=== PATIENT | female | born 1955 | race Caucasian/White ===

== ENCOUNTER → 2019-03-20 | Day surgery (SDC) | payer OTHER ==
[~2019-03-20] MED LIST: BUPIVACAINE (PF) 0.25% 30 ML VIAL INTRAARTIC ONE; DEXAMETHASONE SOD PHOSPHATE 10 MG/ML 1 ML VIAL IV ONE; GLYCOPYRROLATE 0.2 MG/ML 2 ML VIAL ONE; HYDROmorphone 0.5 MG/0.5 ML SYRINGE IVP PRN; LACTATED RINGERS 1,000 ML IV ONE; LACTATED RINGERS 1,000 ML IV SCH; LIDOCAINE 1% 20 ML VIAL (10MG/ML) FOR IV START INTRADERMA PRN; LIDOCAINE 1% INJ 10MG/ML (20 ML MDV) ONE; MIDAZOLAM 2 MG/2 ML VIAL IVP ONE; MIDAZOLAM 2 MG/2 ML VIAL ONE; ONDANSETRON 4 MG/2 ML VIAL IVP ONE; PHENYLEPHRINE-0.9% NACL SYG 1 MG/10 ML SYRINGE ONE; PROPOFOL 10 MG/ML 20 ML VIAL IV ONE; Pre Op ABX Message 1 EACH MISC MISCELLANE ONE; ROPIVACAINE 5 MG/ML 30 ML VIAL ONE; SCOPOLAMINE 1.5MG/72HR PATCH TRANSDERM ONE; SODIUM CHLORIDE 0.9% 50 ML with ceFAZolin 2,000 MG IV ONE; SUCCINYLCHOLINE CHLORIDE 100 MG/5 ML SYR IV ONE; ePHEDrine SULFATE/0.9% NACL/PF 50 MG/5 ML SYRINGE IV ONE; fentaNYL (PF) 50 MCG/ML 2 ML AMP ONE
[2019-03-20 13:22] VITALS: TEMP 97.9
--- NOTE | 2019-03-20 15:21 | P.ANPRN ---
Procedure Note - Anesthesia - Nerve Block Performed Left Interscalene Date of Procedure: 03/20/19 Procedure Start Time: 14:57 Procedure Stop Time: 15:12 Location of Patient Procedure: PreOp Indication: Acute Post-Operative Pain, Requested by Surgeon (Dr Gonzalez) Sedation Type: Sedate with meaningful contact maintained Preparation: Sterile Prep Position: Supine Catheter: None Needle Types: Pajunk Needle Gauge: Other (see comment) (22g) Ultrasound used to visualize needle placement: Yes Ultrasound used to observe medication spread: Yes Injectate: 0.5% Ropivacaine (see comment for volume) (20cc) Blood Aspirated: No Pain Paresthesia on Injection Noted: No Resistance on Injection: Normal Image Stored and Saved: Yes Events: Uneventful and Well Tolerated
[2019-03-20 16:45] VITALS: RESP 16
[2019-03-20 18:18] VITALS: BP 126/78; PULSE 73
--- NOTE | 2019-03-21 08:46 | OP ---
OPERATIVE REPORT DATE OF PROCEDURE: 03/20/2019 SURGEON: Pipe Gonzalez MD [employer] ASSOCIATE: Fercho JOSE. PREOPERATIVE DIAGNOSES: 1. Left shoulder full-thickness rotator cuff tear. 2. Left shoulder superior labral tear. 3. Left shoulder bicipital tenosynovitis. POSTOPERATIVE DIAGNOSES: 1. Left shoulder full-thickness tear of the supraspinatus and anterior infraspinatus, 2 cm x 3 cm of retraction. 2. Left shoulder type 2 degenerative superior labral tear. 3. Left shoulder high-grade partial tearing of the intra-articular portion of long head of the biceps tendon. 4. Left shoulder type 2 anterolateral acromial spur. PROCEDURE PERFORMED: 1. Left shoulder arthroscopic rotator cuff repair. A 2 cm x 3 cm tear of the supraspinatus and anterior infraspinatus. 2. Left shoulder arthroscopic acromioplasty. 3. Left shoulder arthroscopic biceps tenotomy. 4. Left shoulder arthroscopic anterior, superior, and posterior labral debridement. ANESTHESIA: General endotracheal. ESTIMATED BLOOD LOSS: Minimal. TOURNIQUET: None. DRAINS: None. COMPLICATIONS: None apparent. DISPOSITION: Postanesthesia care unit. EXAMINATION UNDER ANESTHESIA: Left shoulder elevation 160 degrees, external rotation at the side 45 degrees, external rotation 90 degrees, internal rotation at 90 degrees, abduction was 60 degrees, sulcus less than 1 cm, anterior translation glenoid face, posterior translation glenoid face. ARTHROSCOPIC FINDINGS LEFT SHOULDER: 1. Superior labrum degenerative type 2 superior labral tear tearing both anterior portion of the biceps anchor. The biceps anchor was not intact. There was also fairly high-grade partial tearing of the intra-articular portion of long head of the biceps tendon. 2. Anterior, inferior labrum normal glenoid labral attachment. 3. Posterior labral tearing of the posterior labrum from the 10 o'clock position up to the 12 o'clock position on the glenoid face. 4. Humeral head cartilage normal. 5. Rotator cuff large full-thickness tear of the supraspinatus in the anterior infraspinatus 3 cm x 2 cm tear with retraction to the medial aspect of the humeral head, glenoid face cartilage was normal. 6. Subacromial space significant fraying of the undersurface of the coracoacromial ligament with type 2 anterolateral acromial spur. INDICATIONS: Molly is a very pleasant 63-year-old female with left shoulder pain. She has noted weakness as well as significant pain in the shoulder. She has been through a very significant course of nonoperative treatment up to this point. Physical examination and MRI reveal tearing of the superior labrum as well as a large rotator cuff tear. At this point in time, she feels as if she has failed nonoperative treatment and would like to proceed with operative intervention. Long discussion was held with the patient with regard to treatment option. The risks of procedure were all discussed with her in detail. These risks included, but were not limited to risk of infection, nerve damage, bleeding, pain, and a small risk of deep vein thrombosis which could lead to fatal pulmonary embolism. Further risks include lack of healing of rotator cuff and possibility for biceps contour change with a biceps tenotomy. The patient understands the operation as well as the fact that there was no guarantee of improvement of her symptoms. An appropriate informed consent was obtained. DESCRIPTION OF PROCEDURE: Patient identified in preoperative holding area. Surgical site was marked by both the patient and myself. She was given 2 g of Ancef IV for prophylactic purposes. She was then transported to the operative suite. She was placed supine on the operative table. The patient was then intubated endotracheally and received general anesthesia throughout the operative procedure. Examination under anesthesia was then performed with the findings noted above. Patient was then placed into the beach chair position, well-padded in preparation for surgery. Great care was taken to ensure the cervical spine is in neutral alignment, well-padded and maintained that way throughout the operative procedure. Great care was also taken to ensure that her legs were appropriately padded as well. Patient's left upper extremity is then prepped and draped in usual sterile fashion. Standard surgical pause undertaken to ensure that appropriate preop antibiotics were given and that we were operating on the correct site. All staff in the room are in agreement, we proceeded. The acromion as well as AC joint coracoid marked with surgical pen. Skin of the anticipated port sites were also marked with surgical pen. The skin of the anticipated portal sites were then injected with 0.25% Marcaine with epinephrine. I then proceed to make a posterior portal. A 30 degree arthroscope was introduced to the glenohumeral joint through this portal. The arthroscopic pump pressure was set at 40 mmHg and maintained at that level throughout the entire case. Next, utilizing an 18-gauge spinal needle to topically localize the placement, the anterior superior portal was made. This was made just underneath the biceps tendon, high on the rotator interval. A small 5.75 mm cannula was then placed. The outflow was then done through this cannula. Diagnostic arthroscopy of the shoulder was then performed. The findings are as noted above. Great care was taken to probe superior labral complex as well as the biceps anchor. The biceps anchor was not firmly attached. She had very significant high-grade partial tearing of the intra-articular portion of the long head of the biceps tendon. The tearing of the labrum did extend both anterior posterior to the biceps anchor. At this point, I proceeded with a biceps tenotomy. The biceps tenotomy lies near its attachment on the supraglenoid tubercle. This was done utilizing the ArthroCare wand. I then proceeded to debride the torn loose tissue of the superior labrum. This was debrided anteriorly, superiorly and posteriorly back to stable tissue. I then inspected the rotator cuff from intra-articular. She did have a full-thickness tear of the entire supraspinatus and the anterior aspect of the infraspinatus. At this point, no further work was deemed necessary from intra-articular. The arthroscope was removed from the glenohumeral joint and utilizing the same posterior skin incision was placed in the subacromial space. Next, utilizing an 18-gauge spinal needle to topically localize placement, a lateral port was made under direct visualization. Subacromial bursectomy was then performed utilizing synovial shaver as well as ArthroCare wand. There was significant fraying of the undersurface of the coracoacromial ligament. This was then taken down utilizing the ArthroCare wand. This exposed underlying type 2 anterolateral acromial spur. I then proceeded with an acromioplasty. Utilizing the arthroscopic bur, the acromioplasty was completed. When the acromioplasty was complete, the arthroscope was placed in the lateral portal and the shaver placed posteriorly to ensure there was adequate and coplanar with posterior aspect of the acromion. I then proceeded to repair the rotator cuff tear. She had a very large full-thickness tear of the supraspinatus and the anterior aspect of the infraspinatus. This tear measured approximately 3 cm x 2 cm. The footprint of the greater tuberosity was then debrided of all devitalized tissue utilizing synovial shaver as well as the ArthroCare wand. I then performed a light decortication tear of the greater tuberosity utilizing synovial shaver in a aldo-type fashion. This provided a nice bleeding surface for the repair. I then placed small microfracture holes along the articular margin to again enhance healing of the repair. I then utilized an 18-gauge spinal needle to topically localize placement of an anterolateral portal. This was made just off the anterolateral angle of the acromion. The portal was then made under direct visualization. I then moved the arthroscope to the anterior lateral portal. The scorpion suture passer was utilized through the lateral portal, placed an Arthrex fiber tape suture in an inverted horizontal mattress fashion in the posterior half of the tear. The sutures were shuttled out through the posterior portal. I then again utilized scorpion suture passer and placed an Arthrex fiber tape suture in inverted horizontal mattress fashion in the anterior half of the tear. The sutures were shuttled out through the anterior portal. I then proceeded with placement of the first anchor. I placed the awl in the most posterolateral aspect of the footprint. The posterior FiberTape sutures were then shuttled through an Arthrex 4.75 mm BioComposite SwiveLock anchor. The sutures were shuttled through the anchor and the anchor placed after tensioning the sutures appropriately. The anchor had an excellent purchase in bone. This brought the rotator cuff tear down very nicely in the most posterolateral aspect of the footprint. I then moved the arthroscope back to the lateral portal. The anterior sutures were brought out through the anterolateral portal. The awl was placed in the most anterolateral aspect of the footprint. This was just posterior to the bicipital groove. Again, an Arthrex 4.75 mm biocomposite SwiveLock anchor was chosen. The FiberTape sutures were shuttled through the anchor and the anchor was placed after tensioning the sutures appropriately. The anchor had excellent purchase and bone. This brought the anterior half of the tear down very nice most anterolateral aspect of the footprint. The FiberTape sutures were cut flush with the anchor. The repair was then probed. It had been repaired down very securely and nicely at the most lateral aspect of the footprint. At this point time no further work was deemed necessary. The shoulder was thoroughly irrigated and drained with an outflow cannula. The arthroscopic equipment was removed from the shoulder. Fluoroscopic portals were then closed with 3-0 nylon interrupted suture. Sterile compressive dressing was then applied. The patient's left upper extremity was placed into a standard sling. All sponge and needle counts were deemed correct prior to closure. The patient tolerated procedure without apparent complication. She was transferred to the recovery room in stable condition. MMAPRIL / MEETN: [id number] /
== END | disposition home or self-care (01) ==
LOC: OR 12:33
PROVIDERS: ATTEND Orthopaedic Surgery Sports Medicine
DX: S46.012A Strain of muscle(s) and tendon(s) of the rotator cuff of left shoulder, initial encounter (principal); S43.432A Superior glenoid labrum lesion of left shoulder, initial encounter; S46.112A Strain of muscle, fascia and tendon of long head of biceps, left arm, initial encounter; M75.82 Other shoulder lesions, left shoulder; M50.322 Other cervical disc degeneration at C5-C6 level; E78.5 Hyperlipidemia, unspecified; F32.9 Major depressive disorder, single episode, unspecified; R45.0 Nervousness; R01.1 Cardiac murmur, unspecified; M26.89 Other dentofacial anomalies; Z79.899 Other long term (current) drug therapy; Z87.891 Personal history of nicotine dependence; Z79.891 Long term (current) use of opiate analgesic; Z98.890 Other specified postprocedural states; Z82.49 Family history of ischemic heart disease and other diseases of the circulatory system; Z79.1 Long term (current) use of non-steroidal anti-inflammatories (NSAID); W10.8XXA Fall (on) (from) other stairs and steps, initial encounter; W22.09XA Striking against other stationary object, initial encounter
CPT/HCPCS: 29827; 29826; 64415; 76942; C1713 ×2; J2250; J1100; J2405; J0690; J2001; J3010; J2795; J2370; J0330; J2704

== ENCOUNTER → 2022-05-11 | Outpatient (CLI) | payer MEDICARE ==
[2022-05-11 10:19] LABS: Basophils # (A) 0.03 X 10*3/uL (0.00-0.10); Basophils % (A) 0.9 %; Eosinophils # (A) 0.24 X 10*3/uL (0.04-0.35); Eosinophils % (A) 7.1 %; HCT 44.1 % (37.2-46.3); HGB 14.1 g/dL (12.0-15.0); Immature Grans, Automated 0.3 %; Lymphocytes # (A) 1.24 X 10*3/uL (0.90-5.00); Lymphocytes % (A) 36.9 %; MCH 29.6 pg (27.0-32.0); MCV 92.5 fL (80.0-97.0); Mean Platelet Volume 9.6 fL (9.5-12.2); Monocytes # (A) 0.34 X 10*3/uL (0.20-1.00); Monocytes % (A) 10.1 %; NRBC Per 100 WBC 0 /100 WBCS (0.0-0.0); Neutrophils % (A) 44.7 %; Platelet Count 223 X 10*3/uL (140-440); RBC 4.77 X 10*6/uL (4.10-5.20); RDW 11.9 % (11.5-14.5); WBC 3.36 X 10*3/uL (4.50-10.00)
[2022-05-11 10:56] LABS: ALT 20 U/L (8-44); AST 16 U/L (13-35); African American GFR (CKD) 85.6 (60.0-200.0); Albumin 4.2 g/dL (3.8-4.9); Albumin/Globulin Ratio 1.99 (1.60-3.17); Alkaline Phosphatase 95 U/L (41-126); BUN/Creat Ratio 22.63 Ratio (12.00-20.00); Blood Urea Nitrogen 18.6 mg/dL (9.0-27.0); Calcium 9.6 mg/dL (8.7-10.3); Carbon Dioxide 27.3 mmol/L (20.0-27.5); Chloride 107 mmol/L (96-109); Chol/HDL Ratio 3.98 Ratio; Globulin 2.1 g/dL (1.6-3.3); Glucose 88 mg/dL (70-110); LDL Cholesterol,Calculated 145.8 mg/dL (0.0-131.0); Non-African American GFR(CKD) 73.8 (60.0-200.0); Potassium 4.7 mmol/L (3.5-5.5); Sodium 143 mmol/L (135-145); Total Protein 6.3 g/dL (6.2-8.2); VLDL Calculation 17.36 mg/dL (5.00-40.00)
== END | disposition home or self-care (01) ==
LOC: LABWHC1 06:59
PROVIDERS: ATTEND Family Medicine
DX: E66.9 Obesity, unspecified (principal); Z68.31 Body mass index [BMI] 31.0-31.9, adult
CPT/HCPCS: 36415; 80053; 80061; 82306; 85025

== ENCOUNTER → 2022-05-18 | Outpatient (CLI) | payer MEDICARE ==
[2022-05-18 10:20] LABS: Basophils # (A) 0.05 X 10*3/uL (0.00-0.10); Basophils % (A) 1.4 %; Eosinophils % (A) 5.4 %; HCT 44.6 % (37.2-46.3); HGB 14.6 g/dL (12.0-15.0); Immature Grans, Automated 0.3 %; Lymphocytes # (A) 1.46 X 10*3/uL (0.90-5.00); Lymphocytes % (A) 39.7 %; MCH 30.4 pg (27.0-32.0); MCHC 32.7 g/dL (32.0-37.0); MCV 92.9 fL (80.0-97.0); Mean Platelet Volume 9.5 fL (9.5-12.2); Monocytes # (A) 0.35 X 10*3/uL (0.20-1.00); Monocytes % (A) 9.5 %; NRBC Per 100 WBC 0 /100 WBCS (0.0-0.0); Neutrophils # (A) 1.61 X 10*3/uL (1.80-7.70); Neutrophils % (A) 43.7 %; Platelet Count 242 X 10*3/uL (140-440); WBC 3.68 X 10*3/uL (4.50-10.00)
[2022-05-18 10:44] LABS: ALT 17 U/L (8-44); AST 13 U/L (13-35); African American GFR (CKD) 100.4 (60.0-200.0); Albumin 4.3 g/dL (3.8-4.9); Albumin/Globulin Ratio 2.03 (1.60-3.17); Alkaline Phosphatase 98 U/L (41-126); BUN/Creat Ratio 27.22 Ratio (12.00-20.00); Blood Urea Nitrogen 19.6 mg/dL (9.0-27.0); Calcium 9.7 mg/dL (8.7-10.3); Carbon Dioxide 28.1 mmol/L (20.0-27.5); Chloride 105 mmol/L (96-109); Chol/HDL Ratio 3.92 Ratio; Globulin 2.1 g/dL (1.6-3.3); Glucose 87 mg/dL (70-110); LDL Cholesterol,Calculated 158.5 mg/dL (0.0-131.0); Non-African American GFR(CKD) 86.7 (60.0-200.0); Potassium 4.9 mmol/L (3.5-5.5); Sodium 140 mmol/L (135-145); Total Protein 6.3 g/dL (6.2-8.2); VLDL Calculation 16.54 mg/dL (5.00-40.00)
== END | disposition home or self-care (01) ==
LOC: LABWHC1 07:01
PROVIDERS: ATTEND Family Medicine
DX: E66.9 Obesity, unspecified (principal); Z68.31 Body mass index [BMI] 31.0-31.9, adult
CPT/HCPCS: 36415; 80053; 80061; 82306; 85025

== ENCOUNTER → 2022-09-28 | Outpatient (CLI) | payer MEDICARE ==
[2022-09-28 15:46] LABS: Basophils # (A) 0.03 X 10*3/uL (0.00-0.10); Basophils % (A) 0.6 %; Eosinophils # (A) 0.07 X 10*3/uL (0.04-0.35); Eosinophils % (A) 1.3 %; HCT 44.4 % (37.2-46.3); HGB 14.8 g/dL (12.0-15.0); Immature Grans, Automated 0.4 %; Lymphocytes # (A) 1.05 X 10*3/uL (0.90-5.00); Lymphocytes % (A) 20.2 %; MCH 30.6 pg (27.0-32.0); MCHC 33.3 g/dL (32.0-37.0); MCV 91.9 fL (80.0-97.0); Mean Platelet Volume 9.6 fL (9.5-12.2); Monocytes % (A) 5.8 %; NRBC Per 100 WBC 0 /100 WBCS (0.0-0.0); Neutrophils # (A) 3.72 X 10*3/uL (1.80-7.70); Neutrophils % (A) 71.7 %; Platelet Count 232 X 10*3/uL (140-440); RBC 4.83 X 10*6/uL (4.10-5.20); WBC 5.19 X 10*3/uL (4.50-10.00)
== END | disposition home or self-care (01) ==
LOC: LABWHC1 10:02
PROVIDERS: ATTEND Family Medicine
DX: D72.819 Decreased white blood cell count, unspecified (principal)
CPT/HCPCS: 36415; 85025

== ENCOUNTER → 2022-10-11 | Outpatient (CLI) | payer MEDICARE ==
--- NOTE | 2022-10-12 08:58 | MM ---
Reason for Exam: Screening (asymptomatic). Last mammogram was performed 2 year(s) and 4 month(s) ago. Patient History: Menarche at age 11. Patient has no children. Postmenopausal. Risk Values: Ev 5 year model risk: 1.9%. NCI Lifetime model risk: 6.2%. Prior Study Comparison: 04/08/2015 Bilateral Screening Mammogram, [facility]. 05/27/2020 Bilateral Screening Mammogram, [facility]. Tissue Density: The breast tissue is almost entirely fat. Findings: Analyzed By CAD. There is no suspicious group of microcalcifications or new suspicious mass in either breast. Overall Assessment: Negative, BI-RAD 1 Management: Screening Mammogram of both breasts in [address] [facility] will attempt to contact patient to return for supplemental views and ultrasound if indicated. Patient should continue monthly self-breast exams. A clinical breast exam by your physician is recommended on an annual basis. This exam should not preclude additional follow-up of suspicious palpable abnormalities. Note on Ev scores and lifetime risk: 1. A Ev score greater than 3% is considered moderate risk. If this is the case, consider specialist referral to assess eligibility for a risk reducing agent. 2. If overall lifetime risk for the development of breast cancer is 20% or higher, the patient may qualify for future screening with alternating mammogram and breast MRI. Electronically signed and approved by: Krishna Guy DO
== END | disposition home or self-care (01) ==
LOC: RADMAMWWP 10:11
PROVIDERS: ATTEND Family Medicine
DX: Z12.31 Encounter for screening mammogram for malignant neoplasm of breast (principal); Z78.0 Asymptomatic menopausal state
CPT/HCPCS: 77067

== ENCOUNTER 2023-02-07 09:52 | Day surgery (SDC) | payer MEDICARE ==
[2023-02-03 15:45] VITALS: BMI 29.5
[~2023-02-07 09:52] MED LIST changes: -BUPIVACAINE (PF) 0.25% 30 ML VIAL INTRAARTIC ONE; -DEXAMETHASONE SOD PHOSPHATE 10 MG/ML 1 ML VIAL IV ONE; -GLYCOPYRROLATE 0.2 MG/ML 2 ML VIAL ONE; -HYDROmorphone 0.5 MG/0.5 ML SYRINGE IVP PRN; -LACTATED RINGERS 1,000 ML IV ONE; -LIDOCAINE 1% 20 ML VIAL (10MG/ML) FOR IV START INTRADERMA PRN; -LIDOCAINE 1% INJ 10MG/ML (20 ML MDV) ONE; -MIDAZOLAM 2 MG/2 ML VIAL IVP ONE; -MIDAZOLAM 2 MG/2 ML VIAL ONE; -ONDANSETRON 4 MG/2 ML VIAL IVP ONE; -PHENYLEPHRINE-0.9% NACL SYG 1 MG/10 ML SYRINGE ONE; -PROPOFOL 10 MG/ML 20 ML VIAL IV ONE; -Pre Op ABX Message 1 EACH MISC MISCELLANE ONE; -ROPIVACAINE 5 MG/ML 30 ML VIAL ONE; -SCOPOLAMINE 1.5MG/72HR PATCH TRANSDERM ONE; -SODIUM CHLORIDE 0.9% 50 ML with ceFAZolin 2,000 MG IV ONE; -SUCCINYLCHOLINE CHLORIDE 100 MG/5 ML SYR IV ONE; -ePHEDrine SULFATE/0.9% NACL/PF 50 MG/5 ML SYRINGE IV ONE; -fentaNYL (PF) 50 MCG/ML 2 ML AMP ONE
[2023-02-07 10:26] VITALS: TEMP 98.2
[2023-02-07] MEDS ORDERED: LIDOCAINE 2% INJ 20 MG/ML (2 ML VIAL) ONE (11:24)
[2023-02-07] MEDS ORDERED: PROPOFOL 10 MG/ML 20 ML VIAL IV ONE (11:24)
--- NOTE | 2023-02-07 11:39 | P.PCN ---
Date of Procedure: 02/07/23 Procedure(s) Performed: BRIEF HISTORY: Patient is a 67-year-old pleasant female scheduled for an elective colonoscopy as a part of screening for colon cancer and family history of colon cancer. Both parents were diagnosed with colon cancer in the 70s respectively. PROCEDURE PERFORMED: Colonoscopy. PREOPERATIVE DIAGNOSIS: Screening for colon cancer and family history of colon cancer. IV sedation per Anesthesia. PROCEDURE: After informed consent was obtained, the patient, was brought into the endoscopy unit. IV sedation was administered by Anesthesia under continuous monitoring. Digital rectal examination was normal. Initially the Olympus CF-160 flexible video colonoscope was then inserted in the rectum, gradually advanced into the cecum without any difficulty. Careful examination was performed as the scope was gradually being withdrawn. Ileocecal valve and the appendiceal orifice were visualized and appeared normal. Prep was excellent. Mucosa of the cecum, ascending colon, transverse colon, descending colon, sigmoid colon, and rectum appeared normal. Scattered sigmoid diverticulosis. Retroflexion was performed in the rectum and small internal hemorrhoids were seen. The patient tolerated the procedure well. IMPRESSION: Normal-appearing colon from rectum to cecum with no evidence of colorectal neoplasia Scattered sigmoid diverticulosis Small internal hemorrhoids . RECOMMENDATIONS: Findings of this examination were discussed with the patient as well as a family.. She was advised to have a repeat screening colonoscopy every 5 years because of the family history of colon cancer.
[2023-02-07 11:48] VITALS: RESP 18
[2023-02-07 12:01] VITALS: BP 127/67; PULSE 78
== END 2023-02-07 12:13 | disposition home or self-care (01) ==
LOC: ORWHC2ENDO 09:52
PROVIDERS: ATTEND Internal Medicine Gastroenterology
DX: Z12.11 Encounter for screening for malignant neoplasm of colon (principal); K64.8 Other hemorrhoids; K57.30 Diverticulosis of large intestine without perforation or abscess without bleeding; E78.5 Hyperlipidemia, unspecified; M19.90 Unspecified osteoarthritis, unspecified site; F32.A Depression, unspecified; Z80.0 Family history of malignant neoplasm of digestive organs; Z79.899 Other long term (current) drug therapy; Z98.890 Other specified postprocedural states
CPT/HCPCS: J2704; J2001; G0105

== ENCOUNTER → 2023-05-29 | Outpatient (CLI) | payer MEDICARE ==
[2023-05-30 02:04] LABS: Basophils # (A) 0.05 X 10*3/uL (0.00-0.10); Basophils % (A) 1.4 %; Eosinophils # (A) 0.14 X 10*3/uL (0.04-0.35); HGB 15.3 g/dL (12.0-15.0); Lymphocytes # (A) 1.45 X 10*3/uL (0.90-5.00); Lymphocytes % (A) 41.2 %; MCH 29.9 pg (27.0-32.0); MCHC 33.3 g/dL (32.0-37.0); Monocytes # (A) 0.29 X 10*3/uL (0.20-1.00); Monocytes % (A) 8.2 %; NRBC Per 100 WBC 0 X 10*3/uL (0.00-0.01); Neutrophils # (A) 1.58 X 10*3/uL (1.80-7.70); Neutrophils % (A) 44.9 %; Platelet Count 243 X 10*3/uL (140-440); RBC 5.11 X 10*6/uL (4.10-5.20); WBC 3.52 X 10*3/uL (4.50-10.00)
[2023-05-30 02:33] LABS: Amylase 98 U/L (23-121); BUN/Creat Ratio 22.25 Ratio (12.00-20.00); Blood Urea Nitrogen 17.8 mg/dL (9.0-27.0); Chloride 106 mmol/L (96-109); Glucose 100 mg/dL (70-110); Potassium 4.6 mmol/L (3.5-5.5); Sodium 140 mmol/L (135-145)
[2023-05-30 02:34] LABS: ALT 14 U/L (8-44); AST 12 U/L (13-35); Albumin 4.2 g/dL (3.8-4.9); Albumin/Globulin Ratio 1.62 Ratio (1.60-3.17); Alkaline Phosphatase 103 U/L (41-126); Calcium 9.8 mg/dL (8.7-10.3); Carbon Dioxide 22.4 mmol/L (21.6-31.8); Globulin 2.6 g/dL (1.6-3.3); Lipase 77 U/L (14-63); Total Bilirubin 0.2 mg/dL (0.3-1.2); Total Protein 6.8 g/dL (6.2-8.2)
== END | disposition home or self-care (01) ==
LOC: LABWHC1 15:23
PROVIDERS: ATTEND Family Medicine
DX: E78.5 Hyperlipidemia, unspecified (principal); R11.0 Nausea
CPT/HCPCS: 36415; 80053; 82150; 83690; 85025

== ENCOUNTER → 2023-06-02 | Outpatient (CLI) | payer MEDICARE ==
[2023-06-02 20:22] LABS: Basophils # (A) 0.05 X 10*3/uL (0.00-0.10); Basophils % (A) 1.7 %; Eosinophils # (A) 0.18 X 10*3/uL (0.04-0.35); Eosinophils % (A) 6.1 %; HCT 45.5 % (37.2-46.3); HGB 14.9 g/dL (12.0-15.0); Immature Grans, Automated 0 %; Lymphocytes # (A) 1.24 X 10*3/uL (0.90-5.00); Lymphocytes % (A) 42.3 %; MCHC 32.7 g/dL (32.0-37.0); MCV 91.7 FL (80.0-97.0); Mean Platelet Volume 10.4 FL (9.5-12.2); Monocytes # (A) 0.23 X 10*3/uL (0.20-1.00); Monocytes % (A) 7.8 %; NRBC Per 100 WBC 0 X 10*3/uL (0.00-0.01); Neutrophils # (A) 1.23 X 10*3/uL (1.80-7.70); Neutrophils % (A) 42.1 %; Platelet Count 245 X 10*3/uL (140-440); RBC 4.96 X 10*6/uL (4.10-5.20); RDW 12.1 % (11.5-14.5); WBC 2.93 X 10*3/uL (4.50-10.00)
[2023-06-02 21:03] LABS: Amylase 76 U/L (23-121); Lipase 40 U/L (14-63)
== END | disposition home or self-care (01) ==
LOC: LABWHC1 14:35
PROVIDERS: ATTEND Family Medicine
DX: R10.9 Unspecified abdominal pain (principal)
CPT/HCPCS: 36415; 82150; 83690; 85025

== ENCOUNTER → 2023-09-06 | Outpatient (CLI) | payer MEDICARE ==
[2023-09-06 11:49] LABS: Chol/HDL Ratio 4.08 Ratio; LDL Cholesterol,Calculated 156.7 mg/dL (0.0-131.0)
== END | disposition home or self-care (01) ==
LOC: LABWHC1 07:23
PROVIDERS: ATTEND Nurse Practitioner Family
DX: Z00.01 Encounter for general adult medical examination with abnormal findings (principal)
CPT/HCPCS: 36415; 80061; 82306; 84439; 84443; 84481

== ENCOUNTER → 2024-01-05 | Outpatient (CLI) | payer MEDICARE | END | disposition home or self-care (01) | LOC: LABWHC1 11:38 | PROVIDERS: ATTEND Family Medicine | DX: E78.5 Hyperlipidemia, unspecified (principal) | CPT/HCPCS: 36415; 80053; 80061; 85025 ==

== ENCOUNTER → 2024-04-17 | Outpatient (CLI) | payer MEDICARE ==
[2024-04-17 15:59] LABS: HCT 45.4 % (37.2-46.3); MCH 30.6 pg (27.0-32.0); MCV 92.7 FL (80.0-97.0); Mean Platelet Volume 9.6 FL (9.5-12.2); NRBC Per 100 WBC 0 X 10*3/uL (0.00-0.01); Platelet Count 323 X 10*3/uL (140-440); RDW 11.9 % (11.5-14.5); WBC 3.53 X 10*3/uL (4.50-10.00)
[2024-04-17 16:34] LABS: ALT 17 U/L (8-44); AST 16 U/L (13-35); Albumin 4.4 g/dL (3.8-4.9); Albumin/Globulin Ratio 1.63 Ratio (1.60-3.17); Alkaline Phosphatase 82 U/L (41-126); BUN/Creat Ratio 19.75 Ratio (12.00-20.00); Blood Urea Nitrogen 15.8 mg/dL (9.0-27.0); Calcium 9.9 mg/dL (8.7-10.3); Carbon Dioxide 26.6 mmol/L (21.6-31.8); Chloride 106 mmol/L (96-109); Chol/HDL Ratio 5.02 Ratio; Globulin 2.7 g/dL (1.6-3.3); Glucose 100 mg/dL (70-110); LDL Cholesterol,Calculated 158.8 mg/dL (0.0-131.0); Potassium 4.6 mmol/L (3.5-5.5); Sodium 142 mmol/L (135-145); Total Bilirubin 0.3 mg/dL (0.3-1.2); Total Protein 7.1 g/dL (6.2-8.2)
== END | disposition home or self-care (01) ==
LOC: LABWHC1 11:13
PROVIDERS: ATTEND Family Medicine
DX: E78.5 Hyperlipidemia, unspecified (principal); R53.83 Other fatigue
CPT/HCPCS: 36415; 80053; 80061; 82306; 82607; 84443; 85027

== ENCOUNTER → 2024-06-10 | Outpatient (CLI) | payer MEDICARE ==
[2024-06-10 15:04] LABS: BUN/Creat Ratio 23.29 Ratio (12.00-20.00); Blood Urea Nitrogen 16.3 mg/dL (9.0-27.0); Carbon Dioxide 26.3 mmol/L (21.6-31.8); Chloride 108 mmol/L (96-109); Chol/HDL Ratio 2.86 Ratio; Glucose 106 mg/dL (70-110); LDL Cholesterol,Calculated 82.1 mg/dL (0.0-131.0); Potassium 5.1 mmol/L (3.5-5.5); Sodium 144 mmol/L (135-145)
[2024-06-10 15:05] LABS: ALT 25 U/L (8-44); AST 18 U/L (13-35); Albumin 4.4 g/dL (3.8-4.9); Albumin/Globulin Ratio 1.91 Ratio (1.60-3.17); Alkaline Phosphatase 91 U/L (41-126); Calcium 9.8 mg/dL (8.7-10.3); Globulin 2.3 g/dL (1.6-3.3); Total Bilirubin 0.4 mg/dL (0.3-1.2); Total Protein 6.7 g/dL (6.2-8.2)
[2024-06-10 15:06] LABS: Basophils # (A) 0.05 X 10*3/uL (0.00-0.10); Basophils % (A) 1.5 %; Eosinophils # (A) 0.29 X 10*3/uL (0.04-0.35); Eosinophils % (A) 8.8 %; HCT 46.6 % (37.2-46.3); HGB 14.7 g/dL (12.0-15.0); Lymphocytes # (A) 1.12 X 10*3/uL (0.90-5.00); MCH 29.6 pg (27.0-32.0); MCHC 31.5 g/dL (32.0-37.0); MCV 93.8 FL (80.0-97.0); Mean Platelet Volume 9.8 FL (9.5-12.2); Monocytes # (A) 0.28 X 10*3/uL (0.20-1.00); Monocytes % (A) 8.5 %; NRBC Per 100 WBC 0 X 10*3/uL (0.00-0.01); Neutrophils # (A) 1.54 X 10*3/uL (1.80-7.70); Neutrophils % (A) 46.9 %; Platelet Count 233 X 10*3/uL (140-440); RBC 4.97 X 10*6/uL (4.10-5.20); RDW 12.5 % (11.5-14.5); WBC 3.29 X 10*3/uL (4.50-10.00)
== END | disposition home or self-care (01) ==
LOC: LABWHC1 10:17
PROVIDERS: ATTEND Family Medicine
DX: E78.5 Hyperlipidemia, unspecified (principal)
CPT/HCPCS: 36415; 80053; 80061; 85025

== ENCOUNTER → 2024-11-27 | Outpatient (CLI) | payer MEDICARE ==
--- NOTE | 2024-11-27 13:40 | MM ---
Reason for Exam: Screening (asymptomatic). Last mammogram was performed 2 year(s) and 2 month(s) ago. Patient History: Menarche at age 11. Patient has no children. Postmenopausal. Risk Values: Ev 5 year model risk: 1.9%. NCI Lifetime model risk: 5.6%. Prior Study Comparison: 04/08/2015 Bilateral Screening Mammogram, [facility]. 05/27/2020 Bilateral Screening Mammogram, [facility]. 10/11/2022 Bilateral MG screening mammo w CAD, [facility]. Tissue Density: The breasts are almost entirely fatty. Findings: Analyzed By CAD. There is no suspicious group of microcalcifications or new suspicious mass in either breast. Overall Assessment: Negative, BI-RAD 1 Management: Screening Mammogram of both breasts in 1 year. . Patient should continue monthly self-breast exams. A clinical breast exam by your physician is recommended on an annual basis. This exam should not preclude additional follow-up of suspicious palpable abnormalities. Note on Ev scores and lifetime risk: 1. A Ev score greater than 3% is considered moderate risk. If this is the case, consider specialist referral to assess eligibility for a risk reducing agent. 2. If overall lifetime risk for the development of breast cancer is 20% or higher, the patient may qualify for future screening with alternating mammogram and breast MRI. [facility], , 11/27/2024 1:37 PM. Electronically signed and approved by: Yogi Smith M.D.
== END | disposition home or self-care (01) ==
LOC: RADMAMWWP 12:42
PROVIDERS: ATTEND Family Medicine
DX: Z12.31 Encounter for screening mammogram for malignant neoplasm of breast (principal); R92.313 Mammographic fatty tissue density, bilateral breasts; Z78.0 Asymptomatic menopausal state
CPT/HCPCS: 77067